=== PATIENT | female | born 1995 | race African-American/Black ===

== ENCOUNTER 2019-05-21 16:13 | Emergency (ER) | payer SELFPAY | END 2019-05-21 17:53 | disposition home or self-care (01) | LOC: ERS 16:13 | DX: M67.431 Ganglion, right wrist (principal); F17.210 Nicotine dependence, cigarettes, uncomplicated | CPT/HCPCS: 99283 ==

== ENCOUNTER 2021-12-31 12:14 | Emergency (ER) | payer SELFPAY ==
[2021-12-31] MEDS ORDERED: Ibuprofen 200 MG TAB ONE (14:19)
[2021-12-31] MEDS ORDERED: Acetaminophen 500 MG TAB ONE (14:19)
== END 2021-12-31 15:38 | disposition home or self-care (01) ==
LOC: ERS 12:14
DX: U07.1 COVID-19 (principal); J06.9 Acute upper respiratory infection, unspecified
CPT/HCPCS: 87804; 99283; U0003; U0005